=== PATIENT | male | born 1965 | race Caucasian/White ===

== ENCOUNTER 2020-09-11 11:48 | Emergency (ER) | payer OTHER, SELFPAY ==
--- NOTE | ~2020-09-11 | XR_ITS ---
EXAMINATION: XR chest 2V DATE: 09/11/2020 11:56 INDICATION: Fever. TECHNIQUE: Frontal and lateral views of the chest were obtained. COMPARISON: CT abdomen and pelvis 06/24/2018 FINDINGS: The chest demonstrates clear lungs without pneumonia, pleural effusion, or pneumothorax. Th e heart size is normal. IMPRESSION: 1. No acute cardiopulmonary disease. Reviewed, dictated and finalized at location A. PT READER
[2020-09-11 11:50] VITALS: BP 160/82; PULSE 101; RESP 20; TEMP 37.3; O2SAT 98
--- NOTE | 2020-09-11 11:50 | ED.URI ---
HPI - URI/Sore Throat General Chief Complaint: Upper Respiratory Infection Stated Complaint: uti Time Seen by Provider: 09/11/20 11:50 Source: patient Mode of arrival: ambulatory Limitations: no limitations History of Present Illness HPI Narrative: Poli Akins is a 55 yo with PMH renal stones who comes to express care with c/o fatigue and fever. He tested covid + 6 days ago (Sunday) and was symptomatic 5 days prior. Also passed a renal stone at least 8 mm in size that left end of penis bruised and tender. Passed it on Sun. but manually extracted it because caught in meatus and was obstructing urine flow. Pt still feels poorly, running low grade fever. Here for evaluation Related Data Allergies Allergy/AdvReac Type Severity Reaction Status Date / Time ciprofloxacin [From Cipro] Allergy Rash Verified 09/11/20 11:54 Review of Systems Review of Systems: Narrative: CONSTITUTIONAL: Has fever, chills, sweats. Has exhaustion EYES: Denies visual changes, redness, discharge. ENT: Denies rhinorrhea, congestion, sore throat, otalgia. CARDIOVASCULAR: Denies chest pain, palpitations, edema. RESPIRATORY: Denies dyspnea, wheezing, cough GASTROINTESTINAL: Denies abdominal pain, nausea, vomiting, diarrhea. GENITOURINARY: Denies dysuria, hematuria, abnormal discharge. Feels pressure lower abdomen and tenderness and bruising of penis SKIN: Denies rash or itching. NEUROLOGIC: Denies numbness, or focal weakness. PSYCHIATRIC: Denies anxiety or depression. PMFSH Past Medical History Medical History Renal calculi Social History Social History (Updated 09/11/20 @ 11:58 by Darlene Monterroso CNP) Smoking status: Never smoker Alcohol intake: never Gender identity (if verbalized by the patient): Male Comments At time of signature, I agree with nursing past medical, surgical, social and family history. There is no relevant family history pertinent to the presenting complaint. Exam Narrative: Exam Narrative: GENERAL: This is a well-nourished, well-developed patient, in mild distress. HEAD: normocephalic, atraumatic. EYES: Sclera clear/white. Vision is grossly intact. EARS: External ears normal, auditory . Hearing grossly intact. NOSE: External nose normal without nasal discharge, nares without redness, no rhinorrhea. THROAT: Mucous membranes moist, NECK: Neck supple, non-tender CARDIOVASCULAR: Regular rate and rhythm without murmurs, gallops, or rubs. RESPIRATORY: Clear to auscultation. Breath sounds equal bilaterally. No wheezes, rales, or rhonchi. GASTROINTESTINAL: Abdomen soft, non-tender, SKIN: warm, intact with no suspicious lesions or rash, good texture and turgor. NEURO: awake, alert, and oriented to person, place and time. There were no obvious focal neurologic abnormalities. Steady gait EXTREMITIES: Normal range of motion. BACK: Nontender without deformity : Bruising and penis and around meatus mild tenderness Course Course Emergency Course: Patient diagnosed with Covid last Sunday with symptoms beginning 5 days before in addition he had a renal calculi that was passed on Sunday measuring 8 mm and he initially extracted stone and has subsequent bruising of penis X-ray and UA done x-ray shows no acute cardiopulmonary process; UA shows protein and blood in urine Started on Keflex for cystitis with hematuria Patient is to follow-up with primary care physician about blood pressure encourage patient to recheck blood pressure at home blood pressure may be increased due to pain and discomfort Vital Signs Vital signs: Vital Signs Temperature 99.2 F 09/11/20 11:50 Pulse Rate 101 H 09/11/20 11:50 Respiratory Rate 20 09/11/20 11:50 Blood Pressure 160/82 H 09/11/20 11:50 Pulse Oximetry 98 09/11/20 11:50 Temperature 99.2 F 09/11/20 11:50 Pulse Rate 101 H 09/11/20 11:50 Respiratory Rate 20 09/11/20 11:50 Blood Pressure 160/82 H 09/11/20 11:50
== END 2020-09-11 12:13 | disposition home or self-care (01) ==
PROVIDERS: Emergency Provider Nurse Practitioner
DX: N30.90 Cystitis, unspecified without hematuria (principal); U07.1 COVID-19; Z87.442 Personal history of urinary calculi
CPT/HCPCS: 71046; 81003; 87086; 87088; 99213; G0463

== ENCOUNTER 2021-02-24 18:27 | Emergency (ER) | payer OTHER, SELFPAY ==
[2021-02-24 18:42] VITALS: BP 136/87; PULSE 100; RESP 18; TEMP 37.6; O2SAT 98
--- NOTE | 2021-02-24 19:01 | ED.ABDPAIN ---
HPI - Abdominal Pain General Chief Complaint: Abdominal Pain Stated Complaint: stomach pain Source: patient Mode of arrival: ambulatory Limitations: no limitations History of Present Illness HPI narrative: 55-year-old male presents to [facility] with complaints of left lower quadrant abdominal pain and mild chills since this morning. Patient reports that the pain did mildly improve after having a bowel movement. Patient reports that the pain is worse with movement. Patient has history of diverticulitis, kidney stones, perforated bowel and bowel obstruction. Patient denies fever, bodies, chills, nausea, vomiting or diarrhea. Patient has not tried taking any [id number] medications for symptoms MD elicited complaint: abdominal pain Pertinent past history: diverticulitis, kidney stones and other (Bowel obstruction, perforated bowel) Onset (ago): hour(s) (12) Pain Consistency: constant Severity: mild Quality: aching Associated symptoms: denies other symptoms Related Data Home Medications Medication Instructions Recorded Confirmed metoprolol succinate 50 mg PO DAILY 02/24/21 02/24/21 pantoprazole 40 mg PO DAILY 02/24/21 02/24/21 Allergies Allergy/AdvReac Type Severity Reaction Status Date / Time ciprofloxacin [From Cipro] Allergy Rash Verified 09/11/20 11:54 Review of Systems Constitutional: Constitutional: Reports chills, Denies fatigue, Denies fever(s) and Denies weakness Cardiovascular: Cardiovascular: Denies chest pain, Denies rapid heart rate, Denies radiating jaw, neck or arm pain and Denies slow heart rate Respiratory: Respiratory: Denies chest congestion, Denies cough, Denies dyspnea and Denies wheezing Gastrointestinal: Gastrointestinal: Reports abdominal pain, Denies constipation, Denies diarrhea, Denies nausea and Denies vomiting Genitourinary: Genitourinary: Denies hematuria and Denies oliguria Musculoskeletal: Musculoskeletal: Denies back pain [facility] Past Medical History Medical History (Updated 02/24/21 @ 19:06 by Aure Arce APRN) Bowel obstruction Diverticulitis Perforated bowel Renal calculi Family History Family History Other Heart disease Malignant neoplasm of prostate Social History Social History Smoking status: Never smoker Alcohol intake: never Gender identity (if verbalized by the patient): Male Comments At time of signature, I agree with nursing past medical, surgical, social and family history. There is no relevant family history pertinent to the presenting complaint. Exam Const: General: no acute distress and alert Nutritional Appearance: well nourished Orientation/consciousness: patient oriented x3 Neck: Neck: normal visual inspection Resp: Effort & Inspection: normal respiratory effort, not labored and not tachypneic Auscultation: clear to auscultation bilaterally Cardio: Rate: regular rate, not bradycardic and not tachycardic Rhythm: regular rhythm GI: GI Palp: Yes Soft to palpation, Yes Tenderness to palpation present (GI) (Moderate tenderness noted to left lower quadrant upon palpation.) and No Palpable mass present Auscultation: normal bowel sounds : General: Yes no CVA tenderness Skin: General skin exam: normal color Rashes: no rashes Wounds: no wounds Neuro: General: patient oriented x3 and moves all extremities Speech: normal speech Psych: Appearance: grossly normal Affect: normal affect Attitude: cooperative Thought content: Yes Normal thought content present Course Vital Signs Vital signs: Vital Signs Temperature 37.6 C 02/24/21 18:42 Pulse Rate 100 02/24/21 18:42 Respiratory Rate 18 02/24/21 18:42 Blood Pressure 136/87 02/24/21 18:42 Pulse Oximetry 98 02/24/21 18:42 Temperature 37.6 C 02/24/21 18:42 Pulse Rate 100 02/24/21 18:42 Respiratory Rate 18 02/24/21 18:42 Blood Pressure
== END 2021-02-24 19:00 | disposition short-term general hospital (02) ==
PROVIDERS: Emergency Provider Nurse Practitioner Family; PCP Internal Medicine
DX: R10.32 Left lower quadrant pain (principal)
CPT/HCPCS: 81003; 99212; G0463

== ENCOUNTER 2025-09-03 15:36 | Outpatient (CLI) | payer BC, SELFPAY ==
--- NOTE | ~2025-09-03 | XR_ITS ---
EXAMINATION: KUB: DATE: 09/03/2025 INDICATION: History of kidney stone. History of lithotripsy 1 week ago. TECHNIQUE: Supine AP view of the abdomen were obtained. COMPARISON: CT abdomen and pelvis dated 06/24/2018. FINDINGS: Bowel gas pattern is normal. Postsurgical changes of upper right abdomen and lower right abdomen. No definite abnormal calcific densities in the projection of kidneys and bladder. IMPRESSION: 1. Postsurgical changes as mentioned above. 2. No definite abnormal calcific densities are noted in the projection of kidneys and bladder. Reviewed, dictated and finalized at location T. TESTER IMPRESSION: 1. Postsurgical changes as mentioned above. 2. No definite abnormal calcific densities are noted in the projection of kidne ys and bladder.
--- NOTE | ~2025-09-03 | US_ITS ---
EXAM/PROCEDURE: US retroperitoneal comp HISTORY: Calculus of kidney COMPARISON: None available. TECHNIQUE: Bilateral renal ultrasound FINDINGS: Right kidney: 10.2 x 5.3 x 5.2 cm. 7.6 x 7.5 x 7.1 cm cyst present in the right kidney. No hydronephrosis or large stones seen. Left kidney: 11.1 x 5.2 x 5.1 cm. No hydronephrosis or large stones seen. No gross acute abnormalities seen in the urinary bladder. Deformity along the inferior margin probably represents prosthetic hypertrophy. IMPRESSION: 1. 7.6 cm cyst in the right kidney. Minimum surveillance with six-month follow- up ultrasound recommended. 2. No hydronephrosis. 3. 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 Reviewed, dictated and finalized at location A. D LABORER
== END 2025-09-03 15:37 | disposition home or self-care (01) ==
LOC: MICIMG 15:38
PROVIDERS: PCP Nurse Practitioner; Visit Provider Nurse Practitioner
DX: N20.0 Calculus of kidney (principal); N28.1 Cyst of kidney, acquired
CPT/HCPCS: 74018; 76770